=== PATIENT | female | born 1970 | race Caucasian/White ===

== ENCOUNTER 2017-04-01 21:11 | Emergency (ER) | payer OTHER ==
[~2017-04-01] VITALS: Ht 152.4 cm; Wt 48.5 kg
[~2017-04-01 21:11] MED LIST: NAPR-1719 PO
[2017-04-01 21:17] VITALS: BP 129/83
--- NOTE | 2017-04-01 22:48 | NUR ---
Patient ambulated to OF to be evaluated as fast track by Dr. Levine.
[2017-04-01] MEDS ORDERED: NACL 0.9% 1,000 ML IV ONE (23:05)
--- NOTE | 2017-04-01 23:31 | NUR ---
Patient returned from CT scan, transferred to bed 3 for further care. RN evaluating patient at bedside.
--- NOTE | 2017-04-01 23:35 | NUR ---
46/F CAME IN W C/O SORE THROAT, DIZZINESS, LETHARGY SINCE YESTERDAY. NO FALLS/TRAUMA. PT REPORTS IT'S HARD TO SWALLOW. DENIES CP, SOB/COUGH. DENIES N/V/D, FEVER/CHILLS. DENIES ANY OTHER PAIN. ABD SOFT, NONDISTENDED. PMH: DIABETES. DENIES RX/OTC
[2017-04-01] MEDS ORDERED: ALBUTEROL SULFATE/IPRATROPIU 3 ML SOL IH ONE (23:50)
[2017-04-02 00:34] LABS: HEMATOCRIT 38.8 % (36-48); HEMOGLOBIN 12.6 g/dL (12.0-16.0); MEAN CORPUSCULAR HEMOGLOBIN 29 pg (27-31); MEAN CORPUSCULAR HGB CONC 32 g/dL (33-37); MEAN CORPUSCULAR VOLUME 90 fL (80-94); PLATELET COUNT (AUTO) 212 K/uL (140-450); RED BLOOD CELL COUNT(AUTO) 4.33 MIL/uL (4.20-5.40); RED CELL DISTRIBUTION WIDTH 12.3 % (11.6-13.7); WHITE BLOOD COUNT (AUTO) 13.8 K/uL (4.8-10.8)
[2017-04-02 00:51] LABS: CARBON DIOXIDE 24.1 mmol/L (21-32); CREATININE 0.6 mg/dL (0.6-1.3); POTASSIUM 4.1 mmol/L (3.5-5.1)
[2017-04-02 01:03] LABS: LYMPHOCYTES % (MANUAL) 24 % (20-46)
[2017-04-02 01:04] LABS: EOSINOPHILS % (MANUAL) 3 % (0-4); MONOCYTES % (MANUAL) 1 % (5-12)
[2017-04-02 01:05] LABS: ALBUMIN 3.9 g/dL (3.4-5.0); THYROID STIMULATING HORMONE 0.67 uIU/mL (0.34-3.74); TOTAL BILIRUBIN 0.6 mg/dL (0.0-1.0)
[2017-04-02] MEDS ORDERED: KETOROLAC 30 MG/ML VIAL IVP ONE (01:05)
[2017-04-02 01:30] VITALS: BP 128/82
== END 2017-04-02 01:30 | disposition home or self-care (01) ==
LOC: MED 21:11
DX: J02.9 Acute pharyngitis, unspecified (principal); F41.9 Anxiety disorder, unspecified
CPT/HCPCS: 36415; 71010; 80053; 81025; 82948; 84443; 84484; 85025; 87081; 93005; 96360; 99285; J7030; J1885; J7620

== ENCOUNTER 2018-05-16 00:08 | Emergency (ER) | payer OTHER ==
[~2018-05-16] VITALS: Ht 154.9 cm; Wt 48.1 kg
[2018-05-16 00:18] VITALS: BP 136/91
--- NOTE | 2018-05-16 00:21 | NUR ---
PT AMB W/O ASST TO ER BED 8
[2018-05-16] MEDS ORDERED: LORazepam 2 MG/ML VIAL IM ONE (00:30)
--- NOTE | 2018-05-16 00:31 | NUR ---
PT BIB FAMILY C/O ANXIETY, DIZZY, SHAKY, REYNOSO, NUMBNESS ON LEFT ARM. NO CP/SOB, AAOX4 AT THIS TIME. Pupils equal and reactive to light bilaterally. No facial droop noted. No smile deficit noted. Speech normal for patient. Patient is alert and oriented to person, place, time and event. Bilateral hand supervisor blasting equal. Bilateral foot push equal. ER MD TO FE, ALL ORDER EXECUTED
--- NOTE | 2018-05-16 00:48 | NUR ---
IM MEDS GIVEN-NADR AT THIS TIME
--- NOTE | 2018-05-16 00:48 | NUR ---
EKG PERFORMED AT BEDSIDE. PT COVERED IN GOWN AND BLANKET DURING PROCEDURE
[2018-05-16 01:30] VITALS: BP 136/91
== END 2018-05-16 01:31 | disposition home or self-care (01) ==
LOC: MED 00:08
DX: F41.0 Panic disorder [episodic paroxysmal anxiety] (principal); E11.9 Type 2 diabetes mellitus without complications; Z79.899 Other long term (current) drug therapy
CPT/HCPCS: 81002; 81025; 82948; 93005; 96372; 99283; J2060

== ENCOUNTER 2018-06-30 23:00 | Emergency (ER) | payer OTHER ==
[~2018-06-30] VITALS: Ht 157.5 cm; Wt 46.8 kg
[2018-06-30 23:01] VITALS: BP 123/78
--- NOTE | 2018-06-30 23:12 | NUR ---
PT AMBULATED BACK TO THE LOBBY, KAYLEES
--- NOTE | 2018-07-01 01:01 | NUR ---
PT AMBULATED TO BED 11.
--- NOTE | 2018-07-01 01:11 | NUR ---
PT BIB SELF CO FEELINGS OF ANXIETY SINCE YESTERDAY EVENING. SHE REPORTS FEELING SHAKEY AND IS EXPERIENCING SOME NUMBNESS AND TINGLING DOWN HER LEFT ARM. SHE STATES SHE HAS HAD PANIC ATTACKS IN THE PAST. SHE ALSO REPORTS SHE WAS GIVEN AN RX FOR ANXIETY BUT CANNOT REMEMBER THE NAME. -- ANSWERS QUESTIONS APPROPRIATELY. DENIES SOB OR S/S PANIC ATTACK AT THIS TIME. -- PMH: DM -- RX: DENIES
[2018-07-01] MEDS ORDERED: LORazepam 0.5 MG TAB PO ONE (01:20)
[2018-07-01 02:34] VITALS: BP 128/83
== END 2018-07-01 02:34 | disposition home or self-care (01) ==
LOC: MED 23:00
DX: F41.9 Anxiety disorder, unspecified (principal); E11.9 Type 2 diabetes mellitus without complications; Z79.1 Long term (current) use of non-steroidal anti-inflammatories (NSAID)
CPT/HCPCS: 82948; 99283